=== PATIENT | male | born 1970 | race African-American/Black ===

== ENCOUNTER 2019-05-10 08:24 | Inpatient (IN) | payer MEDICAID, OTHER ==
[~2019-05-10] VITALS: Ht 167.6 cm; Wt 81.0 kg
[2019-05-10] VITALS: BP 108/84
[~2019-05-10 08:24] MED LIST: ATEN25TA PO; RABE20TA18 PO
[2019-05-10] MEDS ORDERED: methylPREDNISolone SOD SUCC 125 MG/2ML VIAL ONE (08:59)
[2019-05-10] MEDS ORDERED: ALBUTEROL SULFATE INH 18 GM HFA.AER.AD IH PRN (09:00)
[2019-05-10] MEDS ORDERED: IV NS 0.9% 1,000 ML BAG IV ONE (09:00)
[2019-05-10] MEDS ORDERED: methylPREDNISolone SOD SUCC 125 MG/2ML VIAL IV ONE (09:00)
--- NOTE | 2019-05-10 09:10 | NUR ---
BIB RA C/O COUGH, CONGESTION, AND FEVER X 1 MONTH. PATIENT A/OX4, NO SOB NOTED. NEEDS ATTENDED. KEPT COMFORTABLE. ATTACHED TO THE CUSTOMER ACCOUNT ADMINISTRATOR.
[2019-05-10] MEDS ORDERED: CEFTRIAXONE 1GM BAG (ER ONLY) 50 ML IV ONE ×2 (09:55→10:00)
[2019-05-10] MEDS ORDERED: LEVOFLOXACIN 750 MG /D5W 150ML 150 ML IV ONE ×2 (09:56→10:00)
[2019-05-10 10:13] LABS: LYMPHOCYTES # (AUTO) 0.6 /CMM (0.8-4.8); MONOCYTES # (AUTO) 0.3 /CMM (0.1-1.30); WHITE BLOOD COUNT (AUTO) 2.9 K/uL (4.3-11.0)
[2019-05-10 10:16] LABS: BASOPHILS % (AUTO) 0.8 % (0.0-2.0); HEMATOCRIT 46 % (39-51); LYMPHOCYTES % (AUTO) 21.5 % (20.0-44.0); MEAN CORPUSCULAR HGB CONC 33 g/dl (31.0-36.0); MEAN CORPUSCULAR VOLUME 101 fL (80-96); MONOCYTES % (AUTO) 10.7 % (2.0-12.0); PLATELET COUNT (AUTO) 79 /CMM (150-450)
[2019-05-10 10:19] LABS: CALCIUM, SERUM 8.3 mg/dL (8.5-10.1); CREATININE 1.3 mg/dL (0.6-1.3); POTASSIUM 4.3 mmol/L (3.5-5.1)
--- NOTE | 2019-05-10 10:20 | NUR ---
HERBERTH RAZA NP PAGED.
[2019-05-10 10:37] LABS: ALBUMIN 3.9 g/dL (3.4-5.0); BILIRUBIN,DIRECT 1.1 mg/dL (0.0-0.2); BILIRUBIN,TOTAL 1.9 mg/dL (0.2-1.0); TOTAL PROTEIN, SERUM 8.2 g/dL (6.4-8.2)
--- NOTE | 2019-05-10 10:49 | NUR ---
CALLED RN HEAD BAGGAGE PORTER FOR BED.
--- NOTE | 2019-05-10 10:49 | NUR ---
PATEINT RESTING NO DISTRESS NOTED. VS IMPROVED.
[2019-05-10 10:55] LABS: BAND % (MANUAL) 3 % (0.0-5.0); EOSINOPHILS % (MANUAL) 1 % (0-4); LYMPHOCYTES % (MANUAL) 19 % (16-48); MONOCYTES % (MANUAL) 8 % (0-11.0); NEUTROPHILS % (MANUAL) 69 (42-76)
--- NOTE | 2019-05-10 11:24 | NUR ---
REPORT GIVEN TO DAHLIA FERNANDEZ.
--- NOTE | 2019-05-10 11:55 | NUR ---
RN TELE1 PATIENT A/O X4 CALM AND COOPERATIVE. CHIEF COMPLAINT OF FEVER, CONGESTION , COUGH FOR 30 DAYS. EXTERNAL MONITOR SR, NO ACUTE RESPIRATORY DISTRESS. COMPLAINS OF CHEST PAIN, BUTTOCKS PAIN.RIGHT A/C 20 # PATENT AND INTACT. NOS SIGNS OF INFILTRATION . BED LOCKED AND LOWEST POSITION CALL LIGHT WITH IN REACH ALL SAFETY MEASURE IMPLEMENTED PER HOSPITAL POLICY
--- NOTE | 2019-05-10 11:59 | NUR ---
PATIENT TRANSFERRED TO ROOM 109. IN STABLE CONDITION. ENDORSED TO DAHLIA FERNANDEZ.
[2019-05-10 12:00] VITALS: BP 124/86
--- NOTE | 2019-05-10 13:00 | NUR ---
RN TELE1 ATTENDING SAW PATIENT.
--- NOTE | 2019-05-10 13:30 | NUR ---
RN TELE1 PCP FOR PATIENT FACE TO FACE ORDERS NORCO Q6H NOTIFIED PROVIDER ABOUT ALLERGIES. CONFIRMED WITH PATIENT , PATIENT STATED HE IS NOT ALLERGIC TO MORPHINE. PATIENT STATED HE IS NOT BUT THATS WHAT THE HOSPITAL TOLD HIM. I CONFIRMED WITH THE PATIENT 3X TIMES. RISK AND BENEFITS
[2019-05-10 14:24] LABS: C-REACTIVE PROTEIN 0.8 mg/dL (0.0-0.9)
[2019-05-10] MEDS ORDERED: AZITHROMYCIN 250 MG TABLET PO ONE (14:30)
[2019-05-10] MEDS: Z GUARD REMEDY 2 OZ OINT TP SCH (15:14)
[2019-05-10 16:00] VITALS: BP 128/89
[2019-05-10] MEDS ORDERED: HYDROXYCHLOROQUINE 200 MG TABLET PO SCH (17:00)
[2019-05-10] MEDS: HYDROCODONE/APAP 5/325MG 1 EACH TABLET PO PRN ×2 (17:00→23:33)
[2019-05-10] MEDS ORDERED: ATENOLOL 25 MG TABLET PO SCH (19:00)
--- NOTE | 2019-05-10 19:29 | NUR ---
WHITE SHOE RAGGER 1 - CLOSING A/O X4 . CALM AND COOPERATIVE. ATTENTIVE TO CARE . NO CHANGE CONDITION . INSERTED MIDLINE RUT . BED LOCKED AND LOWEST POSITION CALL LIGHT WITH IN REACH ALL SAFETY MEASURE IMPLENTED PER HOSPITAL POLICY.
--- NOTE | 2019-05-10 19:30 | NUR ---
INSPECTOR PRECISION OPENING NOTE RECEIVED PATIENT IN BED. A/O X4. ON OXYGEN 2L/MIN VIA NASAL CANNULA. RESPIRATIONS ARE EVEN AND UNLABORED. NO S/S SOB NOTED. EXTERNAL TELE MONITOR READS ST HR 130. NO S/S PAIN AT THIS TIME. IN NO APPARENT DISTRESS. IV ACCESS IN RUT MIDLINE CURRENTLY SALINE LOCKED. BED IS LOW AND LOCKED, HOB SEMI FOWLERS, SIDE RIALS UP X2. CALL LIGHT WITHIN REACH. WILL CONTINUE TO MONITOR.
[2019-05-10 20:00] VITALS: BP 115/85
--- NOTE | 2019-05-10 21:29 | NUR ---
DIGITAL DESIGNER NOTE CALLED POLICEWOMAN , DR. HARDEN, PATIENT IS REQUESTING SOMETHING FOR SLEEP. MD TELEPHONE ORDERED RESTORIL 7.5MG QHS, ORDER READ BACK, NOTED AND CARRIED OUT. ALSO EXPRESSED CONCERN FOR PAIN MEDICATION NORCO5/325 Q6HR AND PATIENT REQUESTING PAIN MEDICATION AGAIN AROUND 3HRS. ASKED MD IF HE WOULD LIKE TO CHANGE FREQUENCY. MD ORDERED NO CHANGE, TELEPHONE ORDER READ BACK, NOTED AND CARRIED OUT.
[2019-05-10] MEDS ORDERED: TEMAZEPAM 7.5 MG CAPSULE PO PRN (21:30)
--- NOTE | 2019-05-10 22:03 | NUR ---
MOLD BUILDER NOTE ADMINISTERED PRN RESTORIL 7.5MG PER PATIENT REQUEST. WILL CONTINUE TO MONITOR.
--- NOTE | 2019-05-10 23:33 | NUR ---
CHILLER HAND NOTE ADMINISTERED PRN NORCO 5/325 FOR PAIN 7/10 IN BACK AND DURING INSPIRATION. WILL CONTINUE TO MONITOR.
[2019-05-11] VITALS (18 sets, daily range): BP systolic 0–206; BP diastolic 0–99
--- NOTE | 2019-05-11 01:31 | NUR ---
LEAD BLENDER NOTE CALLED INTERNATIONAL LOGISTICS COORDINATOR MD, DR. HARDEN. INFORMED HIM THE PATIENT IS FEELING NAUSEOUS BUT HAS NO ZOFRAN ORDERED. OBTAINED TELEPHONE ORDER FOR ZOFRAN 4MG IV Q8HR PRN. READ BACK NOTED AND CARRIED OUT. ASLO EXPRESSED CONCERN THAT PATIENT IS VERY ANXIOUS AND WOULD LIKE ATIVAN. MD TELEPHONE ORDERED ATIVAN 1MG IV Q8HR PRN. ORDER READ BACK, NOTED AND CARRIED OUT. INFORMED MD THAT PATIENT IS AN ALCOHOLIC AND HAS NOT HAD AN ALCOHOLIC BEVERAGE IN 3 DAYS AND IS CONCERNED OF HAVING A ALCOHOLIC WITHDRAWAL SEIZURE. MD SAID GIVE THE ATIVAN IV. MD ASKED ABOUT O2 SATURATION, AND RESPIRATIONS. O2 SAT IS 96-100%, RR 22/MIN. MD ORDERED STAT ABG. INFORMED MD WILL CALL HIM WITH THE RESULTS. ORDER FOR STAT ABG READ BACK, NOTED AND CARRIED OUT.
[2019-05-11] MEDS: LORAZEPAM INJ 2 MG/ML VIAL IV PRN ×2 (01:40→10:05)
[2019-05-11] MEDS: ONDANSETRON HCL/PF 4 MG/2 ML VIAL IV PRN ×2 (01:40→10:05)
--- NOTE | 2019-05-11 01:41 | NUR ---
QUILL MACHINE OPERATOR NOTE ADMINISTERED PRN ZOFRAN 4MG FOR C/O NAUSEA. WILL CONTINUE TO MONITOR. ADMINISTERED PRN ATIVAN 1MG PER MD ORDER, WELL PER PATIENT REQUEST FOR ANXIOUSNESS. WILL CONTINUE TO MONITOR.
--- NOTE | 2019-05-11 01:48 | NUR ---
NURSE PLASTICS NOTE WASTED ATIVAN WITH GLORIA FERNANDEZ. WASTE PLACED IN PHARMACEUTICAL WASTE BIN.
[2019-05-11 02:04] LABS: ABG BASE EXCESS -10.3 mmol/L; ABG OXYGEN SATURATION 91.6 % (92.0-98.5); ABG PCO2 21.2 mmHg (35.0-45.0); ABG PH 7.381 (7.350-7.450); ABG PO2 71.4 mmHg (75.0-100.0); AaDO2 52.9 mmHg; COHb 0.4 % (0.5-1.5); MetHb 0.5 % (0.0-1.5); O2Hb 90.8 % (94.0-97.0); SITE, ABG Right Brachial; VENT MODE, BG ROOM AIR
--- NOTE | 2019-05-11 02:23 | NUR ---
PAPER SALES REPRESENTATIVE NOTE INFORMED SODA CLERK MD, DR. HARDEN, PATIENTS CRITICAL ABG RESULT ALSO INFORMED THAT PATIENT IS EXPERIENCING SOB, AND WHEEZING. MD TELEPHONE ORDER TO INCREASE O2 TO 3L/MIN AND MONITOR. KEEP O2 SAT BETWEEN 92-93%. ORDER READ BACK NOTED AND CARRIED OUT. ALSO EXPRESSED CONCERN FOR PATIENT REQUEST FOR STOOL SOFTENER. ALREADY GAVE PATIENT PRUNE JUICE BUT IS HAVING DIFFICULTY SWALLOWING D/T SOB. MD TELEPHONE ORDER COLACE 100MG PO TID AND SENEKOT 2 TAB PO QHS. ORDER READ BACK, NOTED AND CARRIED OUT. WILL CONTINUE TO MONITOR.
[2019-05-11] MEDS ORDERED: Folic acid 1 MG in IV D5W 50 ML IV SCH (02:30)
[2019-05-11] MEDS ORDERED: Thiamine 100 MG in IV D5W 50 ML IV SCH (02:30)
[2019-05-11] MEDS ORDERED: Thiamine 100 MG/ML VIAL ONE (02:53)
[2019-05-11] MEDS ORDERED: Folic acid 1 MG/0.2 ML VIAL ONE (02:54)
[2019-05-11] MEDS ORDERED: ALBUTEROL SULFATE INH 18 GM HFA.AER.AD IH PRN (04:00)
[2019-05-11] MEDS ORDERED: IV NS 0.9% 1,000 ML IV PRN (04:00)
--- NOTE | 2019-05-11 04:20 | NUR ---
PROPERTY HANDLER NOTE DR. HARDEN CALLED FOR AN UPDATE. O2 SAT 98%, HR 102. NO EPISODE SOB, PATIENT CALM AND ASLEEP. MD WANTS TO BE NOTIFIED IF THERE IS ANY CHANGES IN CONDITION. I EXPRESSED CONCERN THAT ECHO RESULTS SHOW EF 10% AND IF HE WOULD LIKE TO CONTINUE NS@60ML/HR, MD STATED TO HOLD OFF ON THE FLUIDS AND ENDORSE TO DAY SHIFT. READ BACK, NOTED AND CARRIED OUT.
[2019-05-11 04:32] LABS: BASOPHILS % (AUTO) 0.2 % (0.0-2.0); HEMATOCRIT 47 % (39-51); HEMOGLOBIN 15.4 g/dL (13.5-17.5); LYMPHOCYTES # (AUTO) 0.3 /CMM (0.8-4.8); LYMPHOCYTES % (AUTO) 12.8 % (20.0-44.0); MEAN CORPUSCULAR HGB CONC 33 g/dl (31.0-36.0); MEAN CORPUSCULAR VOLUME 101 fL (80-96); MONOCYTES # (AUTO) 0.2 /CMM (0.1-1.30); MONOCYTES % (AUTO) 8.8 % (2.0-12.0); NEUTROPHILS # (AUTO) 1.9 /CMM (1.8-8.9); NEUTROPHILS % (AUTO) 78.2 % (43.0-81.0); PLATELET COUNT (AUTO) 75 /CMM (150-450); RED BLOOD CELL COUNT(AUTO) 4.65 MIL/uL (4.5-6.0); WHITE BLOOD COUNT (AUTO) 2.4 K/uL (4.3-11.0)
[2019-05-11 04:42] LABS: CALCIUM, SERUM 8.3 mg/dL (8.5-10.1); CREATININE 1.6 mg/dL (0.6-1.3); POTASSIUM 4.9 mmol/L (3.5-5.1)
[2019-05-11 04:48] LABS: ALBUMIN 3.9 g/dL (3.4-5.0); BILIRUBIN,TOTAL 2.3 mg/dL (0.2-1.0); TOTAL PROTEIN, SERUM 8.4 g/dL (6.4-8.2)
[2019-05-11 04:59] LABS: C-REACTIVE PROTEIN 0.6 mg/dL (0.0-0.9)
--- NOTE | 2019-05-11 05:15 | NUR ---
CLOTH MENDER NOTE RECEIVED A CALL FROM LAB TO REPORT A CRITICAL LAB FOR LACTIC ACID 7.5, FROM [facility]. WILL REPORT TO
--- NOTE | 2019-05-11 05:23 | NUR ---
SPRING INSPECTOR NOTE CALLED DISCOVERY MANAGER , DR. HARDEN TO NOTIFY OF CRITICAL LAB RESULT, LACTIC ACID 7.5. STATED NO NEW ORDERS AT THIS TIME. ASKED MD IF HE WOULD WISH TO BEGIN THE 60ML/HR OF NS. STATED NO, JUST ENDORSE TO DAY SHIFT. READ BACK, NOTED AND CARRIED OUT.
[2019-05-11 06:20] LABS: LYMPHOCYTES % (MANUAL) 10 % (16-48); MONOCYTES % (MANUAL) 6 % (0-11.0); NEUTROPHILS % (MANUAL) 84 (42-76)
[2019-05-11] MEDS ORDERED: ALBU0.633 NEB (06:25)
[2019-05-11] MEDS ORDERED: BENZ200C53 PO (06:25)
[2019-05-11] MEDS ORDERED: DIPH50CA4 PO (06:25)
[2019-05-11] MEDS ORDERED: KETO10DR3 EACHEYE (06:25)
[2019-05-11] MEDS ORDERED: HYDR25TA4 PO (06:25)
[2019-05-11] MEDS ORDERED: LEVE500T20 PO (06:25)
[2019-05-11] MEDS ORDERED: FOLI1CAP7 PO (06:25)
[2019-05-11] MEDS ORDERED: LORA10TA7 PO (06:25)
[2019-05-11] MEDS ORDERED: PANT40TA4 PO (06:25)
[2019-05-11] MEDS ORDERED: FLUT16SP BNOSTRILS (06:25)
--- NOTE | 2019-05-11 06:52 | NUR ---
GRAIN ELEVATOR SUPERINTENDENT CLOSING NOTE PATIENT IN BED. A/O X4. ON OXYGEN 3L/MIN VIA NASAL CANNULA. RESPIRATIONS ARE SHALLOW, EXPERIENCED EPISODE OF SOB (SPO2 DROPPED DOWN TO 86%) THROUGHOUT SHIFT. O2 SAT REMAINS >96%. EXTERNAL TELE MONITOR READS ST HR 100. PAIN MANAGED WITH NORCO 5/325. NO MAJOR DISTRESS NOTED. IV ACCESS IN RUT MIDLINE PATENT AND SALINE LOCKED. BED IS LOW AND LOCKED, HOB SEMI FOWLERS, SIDE RIALS UP X2. CALL LIGHT WITHIN REACH. WILL ENDORSE TO NEXT SHIFT.
--- NOTE | 2019-05-11 07:24 | NUR ---
WOUND CARE CONSULT: SPOKE WITH BUSINESS DEVELOPMENT PROFESSIONAL AND NURSING STAFF AND REVIEWED ADMISSION DOCUMENTATION WHICH SHOWS SCARRING/SCAB TO BUTTOCKS, PRESENT ON ADMISSION. PT IS AMBULATORY AND CONTINENT. RECOMMENDATIONS MADE FOR SKIN PROTECTION. DISCUSSED WITH NURSING STAFF. WILL SEE PRN.
--- NOTE | 2019-05-11 08:00 | NUR ---
FOXING CLOSER OPENING NOTES Received Patient awake and resting in bed. A/O x 4. VS stable with no acute distress. Breathing even and unlabored on room air with no respiratory distress. Patient stated pain level of 8/10 on rectum. Will intervene as ordered. Telemonitor in place and patent. RUT Midline clean, intact, patent and flushing well. Isolation precautions in place. Bed locked and set to lowest position with side rails x 2 up. All needs rendered at this time. Call light within reach. Will continue to monitor.
[2019-05-11] MEDS ORDERED: CARVEDILOL 6.25 MG TABLET PO SCH (09:00)
[2019-05-11] MEDS: DOCUSATE SODIUM 100 MG CAPSULE PO SCH ×3 (09:23→16:35)
[2019-05-11] MEDS: FUROSEMIDE 40 MG/4 ML VIAL IV SCH ×3 (09:23→16:35)
[2019-05-11] MEDS: Z GUARD REMEDY 2 OZ OINT TP SCH (09:24)
[2019-05-11] MEDS ORDERED: HYDROCORTISONE CR 30 GM TUBE RC SCH (09:30)
[2019-05-11] MEDS ORDERED: CEFTRIAXONE 2 G in IV D5W 100 ML IV SCH (10:00)
[2019-05-11] MEDS: HYDROCODONE/APAP 5/325MG 1 EACH TABLET PO PRN (10:05)
[2019-05-11] MEDS ORDERED: LEVOFLOXACIN (750 MG) 750 MG TABLET PO SCH (11:00)
[2019-05-11] MEDS ORDERED: AZITHROMYCIN 500 MG in IV D5W 250 ML IV SCH (13:00)
[2019-05-11] MEDS ORDERED: HYDROXYCHLOROQUINE 200 MG TABLET PO SCH (17:00)
--- NOTE | 2019-05-11 17:35 | NUR ---
MS RN NOTES Found Patient on the floor unconscious with RN next to Patient checking for pulse. Patient non-responsive, not breathing with no pulse. Code Blue called. CPR started. Dr. Srivastava, RTs, and RNs came to scene and assisted with transfer of Patient from floor to bed. CPR resumed. Epinephrine administered. Patient intubated. Patient successfully resuscitated. Patient transferred to ICU. Report given to Camelia FERNANDEZ.
--- NOTE | 2019-05-11 18:05 | NUR ---
RN/ICU-RECEIVED PT. FROM MS1 VIA BED ACCOMPANIED BY CODE TEAM PER ACLS PROTOCOL, S/P CODE BLUE R/T C/P ARREST. ON CONTINUOUS BAGGING VIA ETT BY RT AND IMMEDIATELY HOOKED UP TO VENT W/ INITIAL VENT. SETTINGS :AC-16, VT-600, FIO2-100%, PEEP+3. EKG- SR , HR-86, RR-16, BP-99/72.. NO DONNELLY. PT. IS A FULL CODE.
--- NOTE | 2019-05-11 18:25 | NUR ---
RT responded to code blue, pt was intubated with 7.5 tube, 24 @ lip. placed on vent with settings: AC 16 600 100% +3. small valle frothy secretions suctioned. hob at 30 degrees. ambu bag at head of bed.
[2019-05-11] MEDS ORDERED: EPINEPHRINE (1:10,000) SYRINGE 1 MG/10 ML DISP.SYRIN IVP ONE ×2 (18:47→21:29)
[2019-05-11] MEDS ORDERED: CALCIUM CHLORIDE 1,000 MG/10 ML DISP.SYRIN IV ONE ×2 (18:47→21:29)
--- NOTE | 2019-05-11 18:48 | NUR ---
RN/ICU- TEMPT. RECHECKED-, STARTED DOING WARMING MEASURES.
[2019-05-11] MEDS ORDERED: CEFEPIME 1 GM in IV D5W 50 ML IV SCH (19:30)
--- NOTE | 2019-05-11 19:40 | NUR ---
RN/ICU- PT. CRITICALLY ILL. FULL CODE. REPORT GIVEN TO REBECCA ANNE.
--- NOTE | 2019-05-11 19:40 | NUR ---
CANAL BOAT CAPTAIN NOTE RECEIVED PATIENT AROUND THIS TIME, RESTING IN BED, DIFFICULT TO AROUSE. VENT DEPENDANT. FULL CODE.
--- NOTE | 2019-05-11 20:09 | NUR ---
TYPE BAR AND SEGMENT ASSEMBLER NOTE NOTED PATIENT TO BE ASYSTOLE ON MONITOR AROUND THIS TIME. CODE BLUE INITIATED PER ACLS PROTOCOL. SEE CODE BLUE RECORD AND RESUSCITATION DOCUMENTATION TOOL.
[2019-05-11] MEDS ORDERED: AMIODARONE 450 MG in IV D5W 241 ML IV PRN (20:30)
[2019-05-11 20:49] LABS: BASOPHILS % (AUTO) 0.6 % (0.0-2.0); HEMATOCRIT 47 % (39-51); HEMOGLOBIN 14.8 g/dL (13.5-17.5); LYMPHOCYTES # (AUTO) 0.7 /CMM (0.8-4.8); LYMPHOCYTES % (AUTO) 11.1 % (20.0-44.0); MEAN CORPUSCULAR HGB CONC 32 g/dl (31.0-36.0); MEAN CORPUSCULAR VOLUME 105 fL (80-96); MONOCYTES # (AUTO) 0.1 /CMM (0.1-1.30); NEUTROPHILS # (AUTO) 5.3 /CMM (1.8-8.9); NEUTROPHILS % (AUTO) 86.3 % (43.0-81.0); PLATELET COUNT (AUTO) 68 /CMM (150-450); RED BLOOD CELL COUNT(AUTO) 4.48 MIL/uL (4.5-6.0); WHITE BLOOD COUNT (AUTO) 6.2 K/uL (4.3-11.0)
--- NOTE | 2019-05-11 20:52 | NUR ---
GEOPHYSICIST NOTE NOTED PATIENT'S HEART RATE DECREASING TO 40'S AND BECOME PEA ASYSTOLE ON MONITOR AROUND THIS TIME. CODE BLUE INITIATED PER ACLS PROTOCOL. SEE CODE BLUE RECORD AND RESUSCITATION DOCUMENTATION TOOL. WILL CONTINUE TO CLOSELY MONITOR.
[2019-05-11] MEDS ORDERED: NOREPINEPHRINE 8 MG in IV NS 0.9% 242 ML IV PRN (21:00)
[2019-05-11] MEDS ORDERED: CEFEPIME 2 GM in IV D5W 100 ML IV SCH (21:00)
--- NOTE | 2019-05-11 21:16 | NUR ---
WASTEWATER ANALYST NOTE NOTED PATIENT'S HEART RATE CONTINUE TO DECREASE TO 40'S/30'S AND BECOME PEA ASYSTOLE ON MONITOR AROUND THIS TIME. CODE BLUE INITIATED AGAIN PER ACLS PROTOCOL. SEE CODE BLUE RECORD AND RESUSCITATION DOCUMENTATION TOOL.
[2019-05-11 21:18] LABS: BAND % (MANUAL) 4 % (0.0-5.0); LYMPHOCYTES % (MANUAL) 16 % (16-48); MONOCYTES % (MANUAL) 3 % (0-11.0); NEUTROPHILS % (MANUAL) 77 (42-76)
[2019-05-11] MEDS ORDERED: AMIODARONE 150 MG/3 ML VIAL IV ONE (21:29)
--- NOTE | 2019-05-11 21:30 | NUR ---
SENIOR CONTRACTS MANAGER NOTE PATIENT IS UNRESPONSIVE, NO BREATHING, NO PULSE OBTAINED AFTER MULTIPLE CODE BLUE. RECEIVED ORDER FROM ER MD LYONS TO DISCONTINUE CODE BLUE AFTER 2 ADDITIONAL EPI MEDICATIONS. PATIENT IS STILL UNRESPONSIVE DESPITE 2 EPI MEDICATIONS ORDERED AND RESUSCITATION EFFORTS. PATIENT AT THIS TIME. DR. HARDEN MADE AWARE. PATIENT HAS NO FAMILY ON RECORD.
[2019-05-11] MEDS ORDERED: SENNOSIDES/DOCUSATE SODIUM 1 TAB TABLET PO SCH (22:00)
== END 2019-05-11 21:30 | disposition expired | DRG 720 ==
LOC: ER 08:25 → MEDSG1 11:14 → TELE1 14:34 → MEDSG1 05-11 10:59 → ICU 05-11 17:58
PROVIDERS: ADMIT Hospitalist; ATTEND Nurse Practitioner Acute Care
PROC: 05H533Z Insertion of Infusion Device into Right Subclavian Vein, Percutaneous Approach (ICD-10-PCS; principal; 2019-05-10)
PROC: 0BH18EZ Insertion of Endotracheal Airway into Trachea, Via Natural or Artificial Opening Endoscopic (ICD-10-PCS; 2019-05-11)
PROC: 0W993ZZ Drainage of Right Pleural Cavity, Percutaneous Approach (ICD-10-PCS; 2019-05-11)
PROC: 5A12012 Performance of Cardiac Output, Single, Manual (ICD-10-PCS; 2019-05-11)
PROC: 5A1935Z Respiratory Ventilation, Less than 24 Consecutive Hours (ICD-10-PCS; 2019-05-11)
DX: A41.9 Sepsis, unspecified organism (principal); I21.4 Non-ST elevation (NSTEMI) myocardial infarction; J96.90 Respiratory failure, unspecified, unspecified whether with hypoxia or hypercapnia; N17.0 Acute kidney failure with tubular necrosis; J69.0 Pneumonitis due to inhalation of food and vomit; I50.31 Acute diastolic (congestive) heart failure; D69.6 Thrombocytopenia, unspecified; E87.1 Hypo-osmolality and hyponatremia; K70.10 Alcoholic hepatitis without ascites; J90 Pleural effusion, not elsewhere classified; E87.2 Acidosis; I11.0 Hypertensive heart disease with heart failure; I42.9 Cardiomyopathy, unspecified; R65.20 Severe sepsis without septic shock; N18.9 Chronic kidney disease, unspecified; Z87.891 Personal history of nicotine dependence; D72.819 Decreased white blood cell count, unspecified; J98.11 Atelectasis; F41.9 Anxiety disorder, unspecified; J45.909 Unspecified asthma, uncomplicated; S30.810A Abrasion of lower back and pelvis, initial encounter; X58.XXXA Exposure to other specified factors, initial encounter; Y93.9 Activity, unspecified; Y92.009 Unspecified place in unspecified non-institutional (private) residence as the place of occurrence of the external cause; Z87.01 Personal history of pneumonia (recurrent); I45.81 Long QT syndrome; D72.829 Elevated white blood cell count, unspecified; I13.0 Hypertensive heart and chronic kidney disease with heart failure and stage 1 through stage 4 chronic kidney disease, or unspecified chronic kidney disease; B19.20 Unspecified viral hepatitis C without hepatic coma; J44.0 Chronic obstructive pulmonary disease with (acute) lower respiratory infection; K59.00 Constipation, unspecified; R79.1 Abnormal coagulation profile
CPT/HCPCS: 31720; 36410; 36415; 36600; 71045-TC; 80048-TC; 80053-TC; 80076-TC; 82140-TC; 82550-TC; 82728-TC; 82962-TC; 83605-TC; 83615-TC; 83880; 84155-TC; 84484-TC; 85025-TC; 85378-TC; 85652-TC; 85730-TC; 86140-TC; 86704; 86705; 86706; 87040-TC; 87070-TC; 87075-TC; 87081-TC; 87102-TC; 87340; 87806; 89051-TC; 93307-TC; 94002-TC; 99082-TC; G0378; J0171; J0282; J0456; J0692; J0696; J1940; J1956; J2060; J2405; J2930; J3411; J3490; J7030; J7050; J7060